=== PATIENT | male | born 1935 | race Caucasian/White ===

== ENCOUNTER 2023-09-19 14:00 | Outpatient (RCR) | payer MEDICARE, BC, SELFPAY | END 2023-09-19 14:47 | disposition home or self-care (01) | PROVIDERS: PCP Family Medicine; Visit Provider Family Medicine | DX: M54.16 Radiculopathy, lumbar region (principal); M62.81 Muscle weakness (generalized); M54.50 Low back pain, unspecified; Z51.89 Encounter for other specified aftercare | CPT/HCPCS: 97012; 97110; 97140; 97161 ==

== ENCOUNTER 2024-12-16 09:08 | Outpatient (CLI) | payer MEDICARE, BC, SELFPAY | END 2024-12-16 09:09 | disposition home or self-care (01) | LOC: AMB 12-17 09:44 | PROVIDERS: PCP Family Medicine; Visit Provider Family Medicine | DX: R10.9 Unspecified abdominal pain (principal); R19.7 Diarrhea, unspecified; R33.9 Retention of urine, unspecified | CPT/HCPCS: A0425; A0427 ==

== ENCOUNTER 2024-12-16 09:54 | Emergency (ER) | payer MEDICARE, BC, SELFPAY ==
[2024-12-16] VITALS (13 sets, daily range): BP systolic 147–172; BP diastolic 78–107; PULSE 65–78; RESP 18; TEMP 36.2; O2SAT 93–97; BMI 29.3
--- OUTSIDE RECORDS SUMMARY | 2024-12-16 09:57 | XMS_ITS | Clinical Summary ---
Author Organization [facility] Address [address] [place] [address] Care Team Providers Care Tapper Supervisor Name Role Phone None Reported, Pcp Primary Care Provider Unavail able Source Comments Patient records contain information from all sites at [facility]. For routine questions regarding patient records, call [phone] during business hours, M-F 8:00 AM - 5:00 PM Central Time. Record requests for emergency care only can be directed to [phone] at any time.[facility] Allergies No known active allergies Medications betamethasone dipropionate 0.05 % cream Apply topically 2 (two) times a day. 0 Active brimonidine (ALPHAGAN) 0.2 % ophthalmic solution 1 drop 3 (three) times a day. 9 Active finasteride (PROSCAR) 5 mg tablet Take 1 tablet by mouth every morning. 4 Active flecainide (TAMBOCOR) 50 mg tablet Take 50 mg by mouth every 12 (twelve) hours. 4 Active hydroCHLOROthiaz tino (HYDRODIURIL) 25 mg tablet Take 1 tablet by mouth daily. 4 Active hydrocortisone (HYTONE) 2.5 % cream Apply topically. 2 Active latanoprost (XALATAN) 0.005 % ophthalmic solution 1 drop at bedtime. 9 Active levothyroxine (SYNTHROID, LEVOTHROID) 175 mcg tablet Take 175 mcg by mouth daily. 4 Active multivitamin tablet Take 1 tablet by mouth daily. 1 Active tamsulosin (FLOMAX) 0.4 mg 24 hr capsule Take 0.8 mg by mouth daily. 4 Active neomycin-polymyx in B-dexameth (Maxitrol) 3.5 mg/g-10,000 unit/g-0.1 % ophthalmic ointment 4 Active aspirin [address] tablet Take 1 tablet (81 mg total) by mouth daily. Hold for one week after surgery 4 Active acetaminophen (TylenoL) 500 mg tablet Take 1 tablet (500 mg total) by mouth every 6 (six) hours as needed for pain, mild pain or score 1-3 of 10 or moderate pain or score 4-6 of 10. Do not take continuously for more than 2 weeks Do not take more than 4000 mg in one day 4 Active ibuprofen 200 mg capsule Take 3 capsules (600 mg total) by mouth every 6 (six) hours as needed for pain, mild pain or score 1-3 of 10 or moderate pain or score 4-6 of 10. Do not take for more than 2 weeks continuously Do not take more than 2400 mg in one day Take with food 4 Active bacitracin 500 unit/gram ointment Apply 1 Application topically 2 (two) times a day. Apply to penis. 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 Overweight Body Mass Index 25-29.9 Adult 022 Vertigo Benign Paroxysmal Positional Right 10/31 Hypertension Essential Primary 10/13/2014 Apnea Sleep Obstructive 03/26/2011 Vitiligo 03/18/2008 Social History Tobacco Use Types Packs/Day Years Used Date Smoking Tobacco: Former Cigarettes Smokeless Tobacco: Never Tobacco Cessation:Counseling Given: Not Answered Alcohol Use Standard Drinks/Week Comments Not Currently 0 (1 standard drink = 0.6 oz pur e alcohol) [facility] Utilities Answer Date Recorded In the past 12 months has th e electric, gas, oil, or water company threatened to shut off services in your home? No 01/01/2024 Exercise Vital Sign Answer Date Recorde d On average, how many days pe r week do you engage in moderate to strenuous exercise (like a brisk walk)? 0 days 01/01/2024 On average, how many minutes do you engage in exercise at this level? 0 min 01/01/2024 Hunger Vital Sign Answer Date Recorded Within the past 12 months, y ou worried that your food would run out before you got the money to buy more. Never true 01/01/20 Within the past 12 months, t he food you bought just didn't last and you didn't have money to get more. Never true 01/01/2024 PRAPARE - Transportation Answer Date Re corded In the past 12 months, has l ack of transportation kept you from medical appointments or from getting medications? No 09/2023 In the past 12 months, has l ack of transportation kept you from meetings, work, or from getting things needed for daily living? No 01/01/2024 Nutrition Answer Date Recorded On average, how many serving s of fruits and vegetables do you eat per day (serving size is equal to 1 cup or approximately the size of a tennis ball)? 0-2 01/01/2024 Dental Answer Date Recorded Dental: Regular Dentist No 01/01/20 Employment Answer Date Recorded Employment status Retired 01/01/2024 Sex and Gender Information Value Date Recorded Sex Assigned at Male 01/01/2024 4:53 PM CDT Legal Sex Male 8:25 AM CDT Gender Identity Male 01/01/2024 4:53 PM CDT Sexual Orientation Straight 01/01/2024 4: 53 PM CDT Last Filed Vital Signs Vital Sign Reading Time Taken Comments Blood Pressure 143/76 03/25/2024 12:45 PM CDT Pulse 67 03/25/2024 1:30 PM CDT Temperature 36.3 C (97.3 F) 03/25/2024 12:10 PM CDT Respiratory Rate 16 03/25/2024 1:30 PM CDT Oxygen Saturation 94% 03/25/2024 1:30 PM CDT Inhaled Oxygen Concentration - - Weight 96.3 kg (212 lb 6.4 oz) 03/25/2024 9:37 A M CDT Height 179.7 cm (5' 10.75) 03/25/2024 9:37 AM C DT Body Mass Index 29.83 03/25/2024 9:37 AM CDT Plan of Treatment Health Maintenance Due Date Last Done Comments RSV vaccine - (32-36 weeks) or 60+ years (1 - 1-dose 75+ series) 2012 COVID-19 Vaccine ( season) 2024 11/27/2023, 11/07/2022, 07/07/2021, Additional history exists Influenza Vaccine (#1) 2024 , 08/17/2021, 08/13/2021, Additional history exists Depression Screening (Annual PHQ-2) 09/02/2024 Fall Risk Screen (Annual) 09/02/2024 Creatinine Level (Kidney Function Test) 03/06/2025 03/06/2024, 11/27/2023, 11/05/2022, Additional history exists Potassium Level 03/06/2025 03/06/2024, 11/01, 11/05/2022, Additional history exists Sodium Level 03/06/2025 03/06/2024, 11/01, 11/05/2022, Additional history exists DTaP,Tdap,and Td Vaccines (2 - Td or Tdap) 10/12/2025 10/12/2015 Zoster Vaccines Completed 08/16/2020, 2020 Pneumococcal vaccine (50+ years) Completed 11/07/2022, 10/12/2015, 02/28/2009 IPV Vaccines Aged Out No longer eligi ble based on patient's age to complete this topic Medical Devices Implanted Type Area Craft Coordinator Device Identifier Shelf Expiration Date Model / Serial / Lot Hip Implant Hip Implant Left: Hip Hip Implant Hip Implant Right: Hip Insurance MEDICARE [facility] Advance Directives For more information, please contact: [phone] Documents on File Type Date Recorded Patient Stock Repairer Expl anation Advance Directives 03/25/2024 10:27 AM Cesilia Huerta HCPOA/ADVOCATE/AGENT/R EPRESENTATIVE/SURROGAT E Healthcare Agents on File Name Relationship Healthcare Agent Relationship Communication Cesilia Presley Spouse Health Care Agent [email or web address] Anna Loera Grandchild First Alternate Health Care Agent Tammie Huerta Grandchild First Alternate Health Care Agent Care Teams Tapper Supervisor Relationship Specialty Start Date End Date None Reported, Pcp PCP - General 07/10/24
--- OUTSIDE RECORDS SUMMARY | 2024-12-16 09:57 | XMS_ITS | Clinical Summary ---
Author Organization [facility] Address [address] [place] [id number] Care Team Providers Care Mmi Teacher Name Role Phone Adriel Adan MD Unavailable Eric Todd MD Unavailable [phone] João Gan MD Primary Care Provider Allergies No known active allergies Medications aspirin enteric coated 81 mg tablet Take 1 tablet by mouth once daily with a meal. 0 1 Active multivitamin (MVI) tablet Take 1 tablet by mouth once daily. 0 1 Active latanoprost (XALATAN) 0.005 % ophthalmic solutionIndicati ons:Glaucoma, unspecified glaucoma type, unspecified laterality 1 Drop at bedtime. 2.5 mL 9 Active brimonidine (ALPHAGAN) 0.2 % ophthalmic solutionIndicati ons:Glaucoma, unspecified glaucoma type, unspecified laterality 1 Drop 3 times daily. 5 mL 9 Active betamethasone dipropionate 0.05% (DIPROSONE 0.05% CREAM) 0.05 % creamIndications :Phimosis Apply topically to affected area(s) 2 times daily. 1 Tube 0 Active hydrocortisone 2.5% creamIndications :Psoriasis Apply topically to affected area(s) 2 times daily. Apply to ears 30 g 2 2 Active CPAPIndications: Obstructive sleep apnea CPAP machine for home use at pressure 6-15cm/H2O, nasal mask x1/3month with nasal pillows x 2/mo 1 Each 11 3 Active flecainide (TAMBOCOR) 50 mg tabletIndication s:PVC (premature ventricular contraction),PVC 's (premature ventricular contractions) Take 1 Tablet (50 mg) by mouth every 12 hours. 180 Tablet 2 4 Active levothyroxine 175 mcg tabletIndication s:Hypothyroidism , unspecified type Take 1 Tablet (175 mcg) by mouth before breakfast. 90 Tablet 3 5 Active finasteride 5 mg tabletIndication s:Benign prostatic hyperplasia, presence of lower urinary tract symptoms unspecified Take 1 Tablet (5 mg) by mouth once daily in the morning. 90 Tablet 3 5 Active hydroCHLOROthiaz tino 25 mg tabletIndication s:Hypertension, unspecified type Take 1 Tablet (25 mg) by mouth once daily. 90 Tablet 3 5 Active tamsulosin 0.4 mg capsuleIndicatio ns:Benign prostatic hyperplasia, presence of lower urinary tract symptoms unspecified Take 2 Capsules (0.8 mg) by mouth once daily after a meal. 180 Capsule 3 5 Active finasteride (PROSCAR) 5 mg tabletIndication s:Benign prostatic hyperplasia, presence of lower urinary tract symptoms unspecified Take 1 Tablet (5 mg) by mouth every morning. 90 Tablet 3 4 11/28/19 25 Discontin ued(Reord er (E-cancel not sent)) hydroCHLOROthiaz tino (HCTZ) 25 mg tabletIndication s:Hypertension, unspecified type Take 1 Tablet (25 mg) by mouth once daily. 90 Tablet 3 4 11/28/19 25 Discontin ued(Reord er (E-cancel not sent)) tamsulosin 0.4 mg capsuleIndicatio ns:Benign prostatic hyperplasia, presence of lower urinary tract symptoms unspecified TAKE 2 CAPSULES(0.8 MG) BY MOUTH DAILY AFTER A MEAL 180 Capsule 5 11/28/19 25 Discontin ued(Reord er (E-cancel not sent)) levothyroxine (SYNTHROID) 175 mcg tabletIndication s:Hypothyroidism , unspecified type TAKE 1 TABLET(175 MCG) BY MOUTH DAILY 90 Tablet 5 11/20/19 25 Discontin ued(Reord er (E-cancel not sent)) Active Problems Problem Noted Date Diagnosed Date Benign prostatic hyperplasia , presence of lower urinary tract symptoms unspecified 11/27/2024 History of hip replacement, total, bilateral Benign paroxysmal positional vertigo 10/31/2021 Overweight 10/31/2021 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 Essential hypertension 10/13/2014 RADHA 01/1998 AHI-22 03/26/2011 Vitiligo 03/18/2008 Unspecified hypothyroidism Overview (03/18/2008): 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 Resolved Problems Problem Noted Date Diagnosed Date Resolved Date music mixer (current) use of anticoagulants 07/11/2010 08/14/2010 Overview (07/12/2010): INR Goal Range: 1.8 - 2.5 Encounters Date Type Department Care Team Description 12/09/2024 2:45 PM CDT - 12/09/2024 11:59 PM CDT Hospital Encounter [address] [address] Jãoo Gan MD Rein, Erik, PT 12/09/2024 Travel 12/02/2024 2:10 PM CDT - 12/02/2024 11:59 PM CDT Hospital Encounter [address] [address] João Gan MD Rein, Erik, PT Lumbar radiculopathy 12/02/2024 Travel 11/27/2024 2:05 PM CDT Office Visit [facility] [address] [place] [address] João Gan MD Medicare ANNUAL (subsequent) Visit (89 year old) 11/27/2024 Travel 11/20/2024 11:45 AM CDT Office Visit [facility] [address] [place] [address] João Gan MD Hip Pain/problem (Left hip pain, started about a month ago, no known injury) 11/20/2024 Travel 11/18/2024 1:30 PM CDT Orders Only [facility] [address] [place] [address] Lab, [facility] 11/18/2024 Travel 11/13/2024 Refill [facility] [address] [place] [address] João Gan MD Refill Request (Levothyroxine) 11/01/2024 Refill [facility] [address] [place] [address] João Gan MD Refill Request (Tamsulosin) from Last 3 Months Immunizations Immunization Administration Dates Next Due AMB INFLUENZA IIV3 (AGE 65+ YRS) PF (Flu Clinic Only) 06/29/2019,07/06/2017 AMB Influenza, IIV3 (Age >=3 years)(Flu Clinic Only) 08/06/2011,07/30/2008 Amb Influenza, Inact (High-d ose) (Flu Clinic Only) 08/05/2014 COVID-19 VACCINE SPIKEVAX (M ODERNA 50MCG/0.5ML) 12YO+ PFS 08/27/2024,11/27/2023 COVID-19 vaccine (Pfizer-Bio NTech 30mcg/0.3mL) 12YO+ BIVALENT PF, MDV 11/07/2022 COVID-19 vaccine (Pfizer-Bio NTech 30mcg/0.3mL) PF, MDV 07/07/2021 Influenza A (H1N1), Inactivated 09/06/2009 Influenza A (H1N1), Inactiva eboni (Age >=3 Years) 09/06/2009 Influenza, High-dose Inactivated 2020,02/0 05/2016,08/05/2014 Influenza, IIV3 (Age 6-35 mos) 08/06/2011,2008 Influenza, IIV3 (Age >=3 years) 05/11/20 13,07/25/2012,06/15/2010,2008,07/30/2008,08/16/2007,07/17/2006,1 09/17/2004,07/08/2003 Influenza, IIV4 08/13/2021 Influenza, Inactivated AIIV4 (Age 65+ Years) Preserv Free 07/24/2022,08/17/2021,2020 Influenza, Inactivated IIV3 (Age 65+ Years) Preserv Free 08/18/2024,09/03/2018 Influenza,CCIIV4 PRESERV FREE 08/21/2016 Pneumococcal Conj 20-valent (Prevnar 20) 11/07/2022 Pneumococcal Poly,23-Valent (Pneumovax) 02/28/2009 Pneumococcal conj 13-Valent (Prevnar 13) 10/12/2015 Td (Age >=7 Years) 02/05/2006 Tdap 10/12/2015 Zoster (Shingrix-RZV, recombinant) 08/16/2020, Family History Medical History Relation Name Comments Unknown Brother parkinsons with dementia Other cancer Father aroung 72 Heart Disease Mother around 78 Anesthesia Problem No Family History Relation Name Status Comments Brother Father Mother Social History Tobacco Use Types Packs/Day Years Used Date Smoking Tobacco: Former Cigarettes 0.5 4 1 951 - 09/02/1952 Smokeless Tobacco: Never Tobacco Cessation:Counseling Given: No Alcohol Use Standard Drinks/Week Comments No 0 (1 standard drink = 0.6 oz pur e alcohol) PHQ-2 Answer Date Recorded PHQ-2 TOTAL SCORE 0 11/27/2024 Social Connections Answer Date Recorded Do you often feel lonely or isolated from those around you? 0 11/27/2024 Financial Resource Strain Answer Date R ecorded Difficulty of Paying Living Expenses 3 11/27/2024 Difficulty of Paying Living Expenses Not on file 11/27/2024 Food Insecurity Answer Date Recorded Do you worry your food will run out before you are able to buy more? 1 11/27/2024 Transportation Needs Answer Date Record ed Does lack of transportation keep you from medica l appointments? 1 11/27/2024 Does lack of transportation keep you from work, meetings or getting things that you need? 1 11/27/2024 Housing Stability Answer Date Recorded What is your housing situation today? 1 11/27/2024 Utilities Answer Date Recorded Do you have trouble paying f or utilities (for example, heat, electricity, water, phone)? 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 Not on file Not on file Not on f ile Obstetrics History Last Filed Vital Signs Vital Sign Reading Time Taken Comments Blood Pressure 138/58 11/27/2024 2:31 PM CDT Pulse 69 11/27/2024 2:04 PM CDT Temperature 36.8 C (98.3 F) 06/29/2020 1:33 PM CDT Respiratory Rate 18 08/10/2020 1:27 PM POWER LINE INSTALLER AND REPAIRER Oxygen Saturation 94% 11/27/2024 2:04 PM CDT Inhaled Oxygen Concentration - - Weight 94.7 kg (208 lb 12.8 oz) 11/27/2024 2:04 PM CDT Height 176 cm (5' 9.29) 11/27/2024 2:04 PM CDT Body Mass Index 30.58 11/27/2024 2:04 PM CDT Plan of Treatment Upcoming Encounters Date Type Department Care Team (Late st Contact Info) Description 12/23/2024 2:15 PM CDT Appointment [facility] [address] [place] [address] Camron Stock, PT [address] [place] [address] Health Maintenance Due Date Last Done Comments RSV vaccine for adults or (1 - 1-dose 75+ series) 2012 COVID-19 vaccine series ( season) 2025 08/27/2024, 11/27/2023, 11/07/2022, Additional history exists Tetanus booster 10/12/2025 10/12/2015, 02/05/2006 BMI (ht and wt on same day) for age 18+ 11/27/2025 11/27/2024, 05/06/2024, 03/06/2024, Additional history exists Depression screening for age 12+ 11/27/2025 11/27/2024, 11/27/2023, 11/07/2022, Additional history exists Medicare Wellness for age 65+ 11/28/2025, 11/27/2023, 11/07/2022, Additional history exists Tdap Completed 10/13/2015, 10/12/2015 Zoster (shingles) series for age 50+ Completed 08/16/2020, 2020 Pneumococcal series for age 50+ Completed 11/07/2022, 10/12/2015, 02/28/2009 Influenza Vaccine Completed 08/18/2024, , 08/17/2021, Additional history exists Procedures Procedure Name Priority Date/Time Associated Diagnosis Comments BASIC METABOLIC PANEL Routine 11/18/2024 1:28 PM CDT Hypertension, unspecified type TSH WITH REFLEX Routine 11/18/2024 1:28 PM CDT Hypothyroidism, unspecified type from Last 3 Months Results * TSH WITH REFLEX (11/18/2024 1:28 PM CDT) TSH W/REFLEX TO FT4 1.59 0.40 - 4.50 mIU/L [facility] Blood BLOOD SPECIMEN / Unknown 11/18/2024 1:28 PM CDT 11/18/2024 1:29 PM CDT João Gan MD CHEMISTRY Final Result [employer] [facility] [address] [place] [address], [facility] [address] [place] [address] * BASIC METABOLIC PANEL (11/18/2024 1:28 PM CDT) GLUCOSE 66 65 - 99 mg/dL [facility] Comment: Fasting reference interval UREA NITROGEN (BUN) 17 7 - 25 mg/dL [facility] CREATININE 1.00 0.70 - 1.22 mg/dL [facility] EGFR 73 > OR = 60 mL/min/1. 73m2 [facility] BUN/CREATININE RATIO SEE NOTE: (calc) [facility] Comment: Not Reported: BUN and Creatinine are within reference range. SODIUM 139 135 - 146 mmol/L [facility] POTASSIUM 3.6 3.5 - 5.3 mmol/L [facility] CHLORIDE 100 98 - 110 mmol/L [facility] CARBON DIOXIDE 30 20 - 32 mmol/L [facility] ELECTROLYTE BALANCE 9 7 - 17 mmol/L (calc) [facility] CALCIUM 9.6 8.6 - 10.3 mg/dL [facility] Blood BLOOD SPECIMEN / Unknown 11/18/2024 1:28 PM CDT 11/18/2024 1:29 PM CDT João Gan MD CHEMISTRY Final Result [employer] [facility] [address] [place] [address], [facility] [address] [place] [address] from Last 3 Months Insurance MEDICARE PART B HB ONLY MEDICARE PART A HB ONLY BLUE CROSS ELEM BLUE MR PB ONLY BLUE CROSS ELEM BLUE HB ONLY Advance Directives Documents on File Type Date Recorded Patient Manager Billing Expl anation Healthcare Directive 05/17/2021 021 Care Teams Mmi Teacher Relationship Specialty Start Date End Date João Gan MD [address] [place] [address] PCP - General Family Practice 09/30/20 Adriel Adan MD Sleep Medicine 01/02/12 Eric Todd MD Surgery - Orthopedic 01/02/12
--- NOTE | 2024-12-16 10:19 | ED_ITS ---
HPI - Abdominal Pain General Time Seen by Provider: 10:19 Date Seen: 12/16/24 Chief Complaint: Abdominal Pain Stated Complaint: abdominal pain Time Seen by Provider: 12/16/24 10:19 Source: patient and RN notes reviewed Mode of arrival: ambulatory Limitations: no limitations History of Present Illness HPI narrative: This 89-year-old male is brought in by EMS from his home for abdominal pain. He notes he has not been able to urinate since Saturday. He is both on tamsulosin and finasteride for presumably BPH. He has noted no fevers. He has not been feeling ill. He feels pain in his lower abdomen and groin area. He did get some fentanyl from EMS, blood sugar was 164. He states he feels like he has to urinate but is not able to do so. He has had a little loose stool. No nausea or vomiting. On arrival, nursing staff did a bladder scan and got an average of 837 mL. Patient is aware that we plan on placing a Lorenzo catheter, will use Uro jet to aide in comfort. MD elicited complaint: abdominal pain Related Data Home Medications ?Medication ?Instructions ?Recorded ?Confirmed aspirin 81 mg tablet,delayed 81 mg PO DAILY 12/16/24 12/16/24 release (Adult Aspirin Regimen) finasteride 5 mg tablet 5 mg PO DAILY 12/16/24 12/16/24 flecainide 50 mg tablet 50 mg PO BID 12/16/24 12/16/24 hydrochlorothiazide 25 mg tablet 25 mg PO DAILY 12/16/24 12/16/24 latanoprost 0.005 % eye drops drp ophthalmic (eye) 12/16/24 levothyroxine 175 mcg tablet 175 mcg PO DAILY 12/16/24 12/16/24 tamsulosin 0.4 mg capsule 0.8 mg PO DAILY 12/16/24 12/16/24 Allergies Allergy/AdvReac Type Severity Reaction Status Date / Time No Known Drug Allergies Allergy Verified 12/16/24 10:00 Review of Systems Status of ROS Reports: 6 or more systems reviewed and unremarkable except as noted in History and below Exam Const: Vital Signs, click to edit/add: Vital Signs - 24 hr 12/16/24 10:00 12/16/24 10:57 12/16/24 10:57 Temperature 97.2 F L Pulse Rate 69 Pulse Rate [Pulse Oximeter] 78 65 Respiratory Rate 18 18 Blood Pressure 147/78 H Blood Pressure [Ri ght Upper Arm] 166/82 H 147/78 H Pulse Oximetry 94 93 94 Oxygen Delivery Me thod Room Air Room Air 12/16/24 10:58 12/16/24 11:00 12/16/24 11:02 Temperature Pulse Rate 66 70 70 Pulse Rate [Pulse Oximeter] Respiratory Rate Blood Pressure 172/97 H Blood Pressure [Ri ght Upper Arm] Pulse Oximetry 93 94 95 Oxygen Delivery Me thod 12/16/24 11:15 12/16/24 11:30 12/16/24 11:33 Temperature Pulse Rate 67 69 67 Pulse Rate [Pulse Oximeter] Respiratory Rate Blood Pressure 147/97 H Blood Pressure [Ri ght Upper Arm] Pulse Oximetry 95 97 95 Oxygen Delivery Me thod 12/16/24 11:45 12/16/24 12:00 12/16/24 12:04 Temperature Pulse Rate 71 72 70 Pulse Rate [Pulse Oximeter] Respiratory Rate Blood Pressure 149/107 H Blood Pressure [Ri ght Upper Arm] Pulse Oximetry 96 95 96 Oxygen Delivery Me thod 12/16/24 12:15 12/16/24 12:30 Temperature Pulse Rate 66 72 Pulse Rate [Pulse Oximeter] Respiratory Rate Blood Pressure Blood Pressure [Ri ght Upper Arm] Pulse Oximetry 96 95 Oxygen Delivery Me thod This 89-year-old male is alert, interactive, no apparent distress but looks mildly uncomfortable. Sclera clear, symmetrical facial function, able to speak in complete sentences. Lungs are clear, good air entry, no wheezing or crackles, no tachypnea, no accessory muscle use. CV regular rate and rhythm, no significant murmur heard. Abdomen is soft, does seem to have distended bladder with tympanitic change in the lower abdomen. No true rebound or guarding, no organomegaly or masses elsewhere. Skin visualized without rash, no lower extremity edema. Documenting provider has reviewed patient's vital signs: yes Course Course ED Course: Uro jet, Lorenzo catheter placement. Will check some baseline labs just to ensure no significant change. Will see how he does after Lorenzo placement, will check urinalysis to ensure no infection. Do not plan on doing any imaging at this time but will reconsider if there are concerns with the labs or he is not significantly improved from his symptoms with drainage of his bladder. He is having acute urinary retention, with the meds he is on very likely has underlying prostatic hypertrophy. Hopefully Lorenzo catheter placement will go without complication and as stated, will rule out urinary tract infection concern. Reevaluation(s) Time of Reevaluation #1: 12:01 Reevaluation #1: Patient is feeling much better, no abdominal pain. His granddaughter is here whom is an RN. He has not had a normal bowel movement in a week per her report. He was having some difficulty passing stool, had some liquid stool presumably from the a bladder outlet obstruction. We will do a flat and upright to see the stool volume he has. May need to do Enemeez/enema while here to help get his bowels moving. We did discuss need for urology referral potentially, Dr. Gan his primary will be able to help direct them. Catheter will need to stay in place. At this time, no evidence of infection from urinalysis but there where we do culture the urine. His sodium is mildly low which is presumably from the pain in the bladder outlet obstruction he was having. In his records his sodium was 139 in October, just over year ago was just mildly low at 134. He is not having any significant weakness, no confusion. Time of Reevaluation #2: 13:53 Reevaluation #2: Patient had small results, still feels like he has more. Will try Fleets enema. Time of Reevaluation #3: 14:05 Reevaluation #3: When nursing staff went in to do the Fleet's enema, he requested to go home and try some oral remedies. Will make recommendations for [id number] medication for constipation. Will discharge to home at this time. He reported that he was feeling better, less pressure did not feel like he needed the Fleet's enema any longer. Vital Signs Vital signs: Initial Vital Signs Temperature 97.2 F L 12/16/24 10:00 Temperature Source Temporal Artery Scan 12/16/24 10:00 Pulse Rate 78 12/16/24 10:00 Respiratory Rate 18 12/16/24 10:00 Blood Pressure 166/82 H 12/16/24 10:00 Blood Pressure Mean 110 H 12/16/24 10:00 Blood Pressure Position Supine 12/16/24 10:00 Pulse Oximetry 94 12/16/24 10:00 Oxygen Delivery Method Room Air 04/16/25 10:00 Vital Signs Temperature 97.2 F L 12/16/24 10:00 Pulse Rate 78 12/16/24 10:00 Respiratory Rate 18 12/16/24 10:00 Blood Pressure 166/82 H 12/16/24 10:00 Pulse Oximetry 94 12/16/24 10:00 Oxygen Delivery Method Room Air 12/16/24 10:00 Temperature 97.2 F L 12/16/24 10:00 Pulse Rate 72 12/16/24 12:30 Respiratory Rate 18 12/16/24 10:57 Blood Pressure 149/107 H 12/16/24 12:04 Pulse Oximetry 95 12/16/24 12:30 Oxygen Delivery Method Room Air 12/16/24 10:57 Medications Administered Medications: Generic Name Dose Route Start Last Admin Trade Name Freq PRN Reason Stop Dose Admin Lidocaine HCl 6 ml 12/16/24 10:19 12/16/24 10:43 Lidocaine Hcl 2 % Jelly (Top) Sterile UR 6 ml ONCE PRN Administration Discontinued Medications Generic Name Dose Route Start Last Admin Trade Name Freq PRN Reason Stop Dose Admin Docusate Sodium/Benzocaine 5 ml 12/16/24 12:53 12/16/24 13:05 Docusate Sodium/Benzocaine [address] 12/16/24 12:54 5 ml ONCE ONE Administration Sodium Chloride 500 mls @ 500 mls/hr 12/16/24 11:33 12/16/24 12:45 0.9 % Sodium Chloride 500 Ml IV 12/16/24 12:32 Infused .Q1H ONE Infusion MDM - Abdominal Pain Lab Data Attestation: I reviewed the patient's lab results. Labs: Lab Results 12/16/24 12/16/24 Range/Units 10:35 10:46 WBC 10.58 (4.50-11.00) K/uL RBC 4.62 (4.30-5.90) m/uL Hgb 14.6 (13.5-17.5) gm/dL Hct 42.5 (37.0-53.0) % MCV 92 (80-100) fL MCH 32 (26-34) pg MCHC 34 (32-36) gm/dL RDW Coeff of Vanna 12.8 (11.5-15.5) % Plt Count 250 (140-440) K/uL Neut % (Auto) 83.0 H (42.0-72.0) % Lymph % (Auto) 7.9 L (20-44) % [place] % (Auto) 6.7 (0.0-11.0) % Eos % (Auto) 1.0 (0.0-7.0) % Baso % (Auto) 0.6 (0.0-3.0) % Neut # (Auto) 8.80 H (1.7-7.0) K/uL Lymph # (Auto) 0.80 L (0.90-2.90) K/uL [place] # (Auto) 0.70 (0.00-0.90) K/UL Eos # (Auto) 0.11 (0.00-0.50) K/uL Baso # (Auto) 0.06 (0.00-0.30) K/uL Abs Immat Gran (auto) 0.08 (0.00-0.30) K/uL Imm/Tot Granulo (auto) 0.8 % Sodium 129 L (135-149) mmol/L Potassium 3.6 (3.6-5.1) mmol/L Chloride 98 (96-114) mmol/L Carbon Dioxide 24 (20-32) mmol/L Anion Gap 7 (7-15) mEq/L BUN 17 (7-30) mg/dL Creatinine 0.6 (0.5-1.5) mg/dL Estimated Creat Clear 55.43 Estimated GFR 93 ml/min Glucose 99 (60-115) mg/dL Lactate 0.7 (0.5-1.9) mmol/L Calcium 9.2 (8.4-10.6) mg/dL Total Bilirubin 0.8 (0.1-1.5) mg/dL AST 25 (12-35) U/L ALT 16 (4-50) U/L Alkaline Phosphatase 56 (40-150) U/L Total Protein 6.8 (6.0-8.3) g/dL Albumin 4.1 (3.3-5.0) g/dL Urine Color Yellow (Yellow) Urine Appearance Clear (Clear) Urine pH 7.0 (5.0-8.5) Ur Specific [place] 1.015 (1.000-1.030) Urine Protein Negative (Negative) Urine Glucose (UA) Negative (Negative) Urine Ketones Negative (Negative) Urine Blood Trace-intact A (Negative) Urine Nitrite Negative (Negative) Urine Bilirubin Negative (Negative) Urine Urobilinogen 0.2 (0.2-1.0) Ur Leukocyte Esterase Negative (Negative) Urine RBC 0-2 (0-2) Urine WBC 0-2 (0-5) Ur Squamous Epith Cells None (None-Few) Amorphous Sediment Few A (None) Urine Bacteria None (None) Imaging Data Abdominal x-ray: Attestation: I have reviewed the pertinent imaging results. Radiologist's impression: Patient: MARGARETH ALEX Facility:?[facility] Patient ID:?[id number] Site Patient ID:?[id number]. Site :?[id number] Study:?XRay-Abdomen Left 2V-12/16/2024 12:49:02 PM Ordering Physician:?Anai Subramanian Final Report: Indication: 89-year-old with constipation. Technique: Abdomen 2 view. Comparison: None. Findings: Large volume of stool is present nondistended bowel from the cecum to the rectum. No findings for obstruction or perforation. No free air. No mass. No pathologic calcifications. No organomegaly. Right convex thoracolumbar scoliosis with multilevel spondylosis. Bilateral total hip arthroplasties. No acute bony abnormalities. Impression: Constipation. Dictated by Garrett Renteria MD @ 12/16/2024 12:57:01 PM (Electronic Signature) Discharge Plan Discharge Clinical Impression: Acute urinary retention, Lorenzo catheter in place, Acute hyponatremia Constipation Qualifiers: Constipation type: unspecified constipation type Qualified Code(s): K59.00 - Constipation, unspecified Patient Disposition: Home, Self-Care Condition: Stable Instructions: Hyponatremia (ED), Lorenzo Catheter Placement and Care (ED), Constipation (ED) Additional Instructions: Need to schedule a follow-up with Dr. Gan or someone in clinic within the next week for follow-up. Your sodium should be rechecked within the next week to make sure it is improving. Your primary provider or someone in clinic can refer you to urology. You will need to keep the catheter in place, leg bag provided. For the constipation, can get a bottle of magnesium citrate and start drinking it today or tomorrow morning. You can use MiraLax 17 g daily. If you do go over into diarrhea, can back off the MiraLax. Activity Level: Activity as Tolerated Prescriptions: No Action levothyroxine 175 mcg tablet 175 mcg PO DAILY flecainide 50 mg tablet 50 mg PO BID hydrochlorothiazide 25 mg tablet 25 mg PO DAILY finasteride 5 mg tablet 5 mg PO DAILY latanoprost 0.005 % drops ophthalmic (eye) tamsulosin 0.4 mg capsule 0.8 mg PO DAILY aspirin [Adult Aspirin Regimen] 81 mg tablet,delayed release (DR/EC) 81 mg PO DAILY Follow Up/Referrals: João Gan MD [Primary Care Provider] - Stand Alone Forms: [employer] Info Instructions
[2024-12-16] MEDS: lidocaine HCL 2 % JELLY (TOP) STERILE 6 ML UR (10:43)
[2024-12-16 10:51] LABS: Lactate* 0.7 mmol/L (0.5-1.9)
--- OUTSIDE RECORDS SUMMARY | 2024-12-16 10:57 | XMS_ITS | Clinical Summary ---
Author Organization [facility] Address [address] [place] [address] Care Team Providers Care Head Filter Press Tender Name Role Phone None Reported, Pcp Primary Care Provider Unavail able Source Comments Patient records contain information from all sites at [facility]. For routine questions regarding patient records, call [phone] during business hours, M-F 8:00 AM - 5:00 PM Central Time. Record requests for emergency care only can be directed to [phone] at any time.[facility] Allergies No known active allergies Medications betamethasone [...] drink = 0.6 oz pur e alcohol) [facility] Utilities Answer Date Recorded In the past [...] this topic Medical Devices Implanted Type Area Frame Bander Device Identifier Shelf Expiration Date Model / Serial / Lot Hip Implant Hip Implant Left: Hip Hip Implant Hip Implant Right: Hip Insurance MEDICARE [facility] Advance Directives For more information, please contact: [phone] Documents on File Type Date Recorded Patient Supervisor Pipe Manufacture Expl anation Advance Directives 03/25/2024 10:27 AM Cesilia Huerta HCPOA/ADVOCATE/AGENT/R EPRESENTATIVE/SURROGAT E Healthcare Agents on File Name Relationship Healthcare Agent Relationship Communication Cesilia Presley Spouse Health Care Agent [email or web address] Anna Loera Grandchild First Alternate Health Care Agent Tammie Huerta Grandchild First Alternate Health Care Agent Care Teams Head Filter Press Tender Relationship Specialty Start Date End Date None Reported, Pcp PCP - General 07/10/24
--- OUTSIDE RECORDS SUMMARY | 2024-12-16 10:57 | XMS_ITS | Clinical Summary ---
Author Organization [employer] [facility] Address [address] [place] [address] Care Team Providers Care Delivery Of Shopping News Name Role Phone Adriel Adan MD Unavailable Eric Todd MD Unavailable [phone] João Gan MD Primary Care Provider Allergies [...] Problem Noted Date Diagnosed Date Resolved Date long term care social worker (current) use of anticoagulants 07/11/2010 08/14/2010 Overview (07/12/2010): INR Goal Range: 1.8 - 2.5 Encounters Date Type Department Care Team Description 12/09/2024 2:45 PM CDT - 12/09/2024 11:59 PM CDT Hospital Encounter [address] [address] João Gan MD Rein, Erik, PT 12/09/2024 Travel 12/02/2024 2:10 PM CDT - 12/02/2024 11:59 PM CDT Hospital Encounter [address] [address] João Gan MD Rein, Erik, PT Lumbar radiculopathy 12/02/2024 Travel 11/27/2024 2:05 PM CDT Office Visit [facility] [address] [place] [address] João Gan MD Medicare ANNUAL (subsequent) Visit (89 year old) 11/27/2024 Travel 11/20/2024 11:45 AM CDT Office Visit [facility] [address] [place] [address] João Gan MD Hip Pain/problem (Left hip pain, started about a month ago, no known injury) 11/20/2024 Travel 11/18/2024 1:30 PM CDT Orders Only [facility] [address] [place] [address] Lab, [facility] 11/18/2024 Travel 11/13/2024 Refill [facility] [address] [place] [address] João Gan MD Refill Request (Levothyroxine) 11/01/2024 Refill [facility] [address] [place] [address] João Gna MD Refill Request (Tamsulosin) from Last 3 [...] on file Legal Sex Male 5:46 AM GOLF CADDIE Gender Identity Not on file Sexual Orientation Not on file 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 Not on file Not on file Not on f ile Obstetrics History Last Filed Vital Signs Vital Sign Reading Time Taken Comments Blood Pressure 138/58 11/27/2024 2:31 PM CDT Pulse 69 11/27/2024 2:04 PM CDT Temperature 36.8 C (98.3 F) 06/29/2020 1:33 PM CDT Respiratory Rate 18 08/10/2020 1:27 PM GOLF CADDIE Oxygen Saturation 94% 11/27/2024 2:04 PM CDT Inhaled Oxygen Concentration - - Weight 94.7 kg (208 lb 12.8 oz) 11/27/2024 2:04 PM CDT Height 176 cm (5' 9.29) 11/27/2024 2:04 PM CDT Body Mass Index 30.58 11/27/2024 2:04 PM CDT Plan of Treatment Upcoming Encounters Date Type Department Care Team (Late st Contact Info) Description 12/23/2024 2:15 PM CDT Appointment [facility] [address] [place] [address] Camron Stock, PT [address] [place] [address] Health Maintenance Due Date Last Done Comments [...] TO FT4 1.59 0.40 - 4.50 mIU/L [facility] Blood BLOOD SPECIMEN / Unknown 11/18/2024 1:28 PM CDT 11/18/2024 1:29 PM CDT João Gan MD CHEMISTRY Final Result [facility] [address] [place] [address], [facility] [address] [place] [address] * BASIC METABOLIC PANEL (11/18/2024 1:28 PM [...] CDT João Gan MD CHEMISTRY Final Result [facility] [address] [place] [address], [facility] [address] [place] [address] from Last 3 Months Insurance MEDICARE PART B HB ONLY MEDICARE PART A HB ONLY [employer] [place] BLUE MR PB ONLY [employer] [place] HB ONLY Advance Directives Documents on File Type Date Recorded Patient Reading Assistant Expl anation Healthcare Directive 05/17/2021 021 Care Teams Delivery Of Shopping News Relationship Specialty Start Date End Date João Gan MD [address] [place] [address] PCP - General Family Practice 09/30/20 Adriel Adan MD Sleep Medicine 01/02/12 Eric Todd MD Surgery - Orthopedic 01/02/12
[2024-12-16 10:58] LABS: Basophils Absolute Auto 0.06 K/uL (0.00-0.30); Basophils Percent Auto 0.6 % (0.0-3.0); Eosinophils Absolute Auto 0.11 K/uL (0.00-0.50); Hematocrit 42.5 % (37.0-53.0); Hemoglobin* 14.6 gm/dL (13.5-17.5); Immature Granulocytes Abs Auto 0.08 K/uL (0.00-0.30); Immature Granulocytes Pct Auto 0.8 %; Lymphocytes Percent Auto 7.9 % (20-44); Mean Corpuscular HGB Conc 34 gm/dL (32-36); Mean Corpuscular Hemoglobin 32 pg (26-34); Mean Corpuscular Volume 92 fL (80-100); Monocytes Percent Auto 6.7 % (0.0-11.0); Platelet Count* 250 K/uL (140-440); RDW Coefficient of Variation % 12.8 % (11.5-15.5); Red Blood Count 4.62 m/uL (4.30-5.90); White Blood Count* 10.58 K/uL (4.50-11.00)
[2024-12-16 11:09] LABS: Albumin* 4.1 g/dL (3.3-5.0); Chloride* 98 mmol/L (96-114); Potassium* 3.6 mmol/L (3.6-5.1); Sodium* 129 mmol/L (135-149)
[2024-12-16 11:12] LABS: Alanine Aminotransferase* 16 U/L (4-50); Alkaline Phosphatase* 56 U/L (40-150); Anion Gap 7 mEq/L (7-15); Aspartate Amino Transferase* 25 U/L (12-35); Bilirubin Total* 0.8 mg/dL (0.1-1.5); Blood Urea Nitrogen* 17 mg/dL (7-30); Carbon Dioxide* 24 mmol/L (20-32); Creatinine* 0.6 mg/dL (0.5-1.5); Est. Creatinine Clearance* 55.43; Estimated Glomerular Filt Rate 93 ml/min; Total Protein* 6.8 g/dL (6.0-8.3)
[2024-12-16 11:13] LABS: Appearance Urine Clear (Clear); Bilirubin Urine Negative (Negative); Blood Urine Trace-intact (Negative); Color Urine Yellow (Yellow); Glucose Urine Negative (Negative); Ketones Urine Negative (Negative); Leukocyte Esterase Urine Negative (Negative); Nitrite Urine Negative (Negative); Protein Urine Negative (Negative); Specific Gravity Urine 1.015 (1.000-1.030); Urobilinogen Urine 0.2 (0.2-1.0)
[2024-12-16 11:13] LABS: Calcium* 9.2 mg/dL (8.4-10.6); Glucose* 99 mg/dL (60-115)
[2024-12-16 11:17] LABS: Slide Review Reflex No
[2024-12-16 11:21] LABS: Amorphous Sediment Urine Few; RBC Urine 0-2 (0-2); WBC Urine 0-2 (0-5)
[2024-12-16] MEDS: 0.9 % SODIUM CHLORIDE 500 ML 500 ML IV (11:41)
--- NOTE | 2024-12-16 12:01 | CRLHL7_ITS ---
For Patients: As a result of the Century Cures Act, medical imaging exams and procedure reports are released immediately into your electronic medical record. You may view this report before your referring provider. If you have questions, please contact your health care provider. Indication: 89-year-old with constipation. Technique: Abdomen 2 view. Comparison: None. Findings: Large volume of stool is present nondistended bowel from the cecum to the rectum. No findings for obstruction or perforation. No free air. No mass. No pathologic calcifications. No organomegaly. Right convex thoracolumbar scoliosis with multilevel spondylosis. Bilateral total hip arthroplasties. No acute bony abnormalities. Impression: Constipation. Dictated by Garrett Renteria MD @ 12/16/2024 12:57:01 PM (Electronically Signed)
[2024-12-16] MEDS: DOCUSATE SODIUM/BENZOCAINE 5 ML ENEMA PR (13:05)
--- NOTE | 2024-12-16 14:08 | PC.SOCIAL ---
Social work: Met with pt's children and at their request. Dtr is a nurse and is requesting a one time home health visit for catheter teaching. Dtr is aware this can be set up by primary care physician at [facility] if it is not ordered by ED physician. Dtr plans to contact pt's primary care physician and pt will sign forms for release of information so that records are shared with Dr. Gan. Provided family with information on hiring home stager care if this is needed for support at home and home health care agencies that serve pt's area. Family was appreciative of information provided. Currently family has no other questions or concerns.
== END 2024-12-16 14:56 | disposition home or self-care (01) ==
PROVIDERS: Emergency Provider Family Medicine; PCP Family Medicine
DX: R33.9 Retention of urine, unspecified (principal); K59.00 Constipation, unspecified; E87.1 Hypo-osmolality and hyponatremia
CPT/HCPCS: 51702; 36415; 74019; 80053; 81001; 83605; 85025; 99283; 99284; A9270; J7030

== ENCOUNTER 2025-02-02 12:57 | Outpatient (CLI) | payer MEDICARE, BC, SELFPAY | END 2025-02-02 12:58 | disposition home or self-care (01) | LOC: INJ CL 12:59 | PROVIDERS: PCP Family Medicine; Visit Provider Family Medicine | DX: M54.16 Radiculopathy, lumbar region (principal) | CPT/HCPCS: 64483; J1100; Q9966 ==